=== PATIENT | male | born 1950 | race Two or more races ===

== ENCOUNTER 2017-12-12 13:32 | Emergency (ER) | payer MEDICARE, OTHER ==
[~2017-12-12] VITALS: Ht 165.1 cm; Wt 81.6 kg
[2017-12-12 13:32] VITALS: BP 151/84
[2017-12-12] MEDS ORDERED: IBUPROFEN 600 MG TABLET PO ONE (13:42)
[2017-12-12] MEDS: IBUPROFEN 600 MG TABLET PO ONE (13:50)
== END 2017-12-12 13:50 | disposition home or self-care (01) ==
LOC: ER 13:33
DX: M54.5 Low back pain (principal); V49.49XA Driver injured in collision with other motor vehicles in traffic accident, initial encounter; Y93.89 Activity, other specified; Y92.413 State road as the place of occurrence of the external cause; Y99.8 Other external cause status
CPT/HCPCS: A4606; Z7610